=== PATIENT | male | born 1970 | race Caucasian/White ===

== ENCOUNTER 2020-07-28 09:33 | Outpatient (CLI) | payer OTHER | END 2020-07-28 09:34 | disposition home or self-care (01) | LOC: COV 09:33 | PROVIDERS: ATTEND Family Medicine | DX: Z20.828 Contact with and (suspected) exposure to other viral communicable diseases (principal) ==

== ENCOUNTER 2021-01-25 08:00 | Outpatient (CLI) | payer OTHER ==
--- NOTE | 2021-01-25 12:31 | XRAY Report ---
PROCEDURE: Knee 3 View RT INDICATIONS: KNEE PAIN, RIGHT TECHNIQUE: 3 views of the right knee(s) were acquired. COMPARISON: None. FINDINGS: Bones: No fractures or dislocations. No suspicious bony lesions. Scattered subchondral sclerosis a nd spurring. Mild patellofemoral joint space narrowing. Soft tissues: No joint effusion. No suspicious soft tissue calcifications. IMPRESSION: Mild degenerative changes as above. If the patient's pain or other symptoms persist, consider further evaluation with MRI. Reviewed by: Alexander Gary MD on 01/25/2021 12:29 PM PST Approved by: Alexander Gary MD on 01/25/2021 12:29 PM PST Station ID: [id number]
== END 2021-01-25 23:59 | disposition home or self-care (01) ==
LOC: DI.S 08:00
PROVIDERS: ATTEND Physician Assistant Medical
DX: M25.561 Pain in right knee (principal); M17.11 Unilateral primary osteoarthritis, right knee